=== PATIENT | male | born 1965 | race Caucasian/White ===

== ENCOUNTER 2020-12-17 11:02 | Inpatient (IN) | payer OTHER ==
[~2020-12-17] VITALS: Ht 172.7 cm; Wt 59.4 kg
--- NOTE | 2020-12-17 11:05 | NUR ---
The patient is [id number] for weakness and hypotension per report. The patient alert and oriented to his name. In room air. Respiration regular and unlabored. In no apparent distress at this time. Attached to the monitor. Warm blanket provided for comfort. Will continue to monitor the patient.
[2020-12-17] MEDS ORDERED: IV NS 0.9% 1,000 ML BAG IV ONE (11:30)
--- NOTE | 2020-12-17 11:46 | NUR ---
BLOOD SPECIMEN COLLECTED AND SENT TO THE LAB
[2020-12-17 11:50] LABS: BASOPHILS % (AUTO) 0.4 % (0.0-2.0); EOSINOPHILS % (AUTO) 0.9 % (0.0-6.0); HEMATOCRIT 43 % (39-51); HEMOGLOBIN 14.5 g/dL (13.5-17.5); LYMPHOCYTES # (AUTO) 1.3 /CMM (0.8-4.8); LYMPHOCYTES % (AUTO) 23.4 % (20.0-44.0); MEAN CORPUSCULAR HGB CONC 34 g/dl (31.0-36.0); MEAN CORPUSCULAR VOLUME 90 fL (80-96); MONOCYTES # (AUTO) 0.3 /CMM (0.1-1.30); MONOCYTES % (AUTO) 5.8 % (2.0-12.0); NEUTROPHILS # (AUTO) 3.9 /CMM (1.8-8.9); NEUTROPHILS % (AUTO) 69.5 % (43.0-81.0); PLATELET COUNT (AUTO) 207 /CMM (150-450); RED BLOOD CELL COUNT(AUTO) 4.73 MIL/uL (4.5-6.0); WHITE BLOOD COUNT (AUTO) 5.6 K/uL (4.3-11.0)
[2020-12-17 12:02] LABS: CALCIUM, SERUM 8.9 mg/dL (8.5-10.1); CARBON DIOXIDE 30 mmol/L (21-32); CHLORIDE 106 mmol/L (98-107); CREATININE 0.9 mg/dL (0.6-1.3); GLUCOSE 183 mg/dL (74-106); POTASSIUM 4.3 mmol/L (3.5-5.1); SODIUM SERUM 142 mmol/L (136-145); UREA NITROGEN, BLOOD 11 mg/dL (7-18)
[2020-12-17 12:16] LABS: ALANINE AMINOTRANSFERASE 18 U/L (12-78); ALBUMIN 3.9 g/dL (3.4-5.0); ALKALINE PHOSPHATASE 72 U/L (46-116); ASPARTATE AMINOTRANSFERASE 13 U/L (15-37); B-TYPE NATRIURETIC PEPTIDE 137 PG/ML (0-125); BILIRUBIN,DIRECT 0.2 mg/dL (0.0-0.2); BILIRUBIN,TOTAL 1.3 mg/dL (0.2-1.0)
[2020-12-17] MEDS ORDERED: CLON0.5T4 PO (12:17)
[2020-12-17] MEDS ORDERED: NA P133E RC (12:17)
[2020-12-17] MEDS ORDERED: CRAN425C6 PO (12:17)
[2020-12-17] MEDS ORDERED: LACT1CAP61 PO (12:17)
[2020-12-17] MEDS ORDERED: POLY17PO4 PO (12:17)
[2020-12-17] MEDS ORDERED: CITA20TA19 PO (12:17)
[2020-12-17] MEDS ORDERED: MELA3TAB41 PO (12:17)
[2020-12-17] MEDS ORDERED: DOCU-141 PO (12:17)
[2020-12-17] MEDS ORDERED: ASCO500C17 PO (12:17)
[2020-12-17] MEDS ORDERED: CARB1TAB21 PO (12:17)
[2020-12-17] MEDS ORDERED: MAGN400O6 PO (12:17)
[2020-12-17] MEDS ORDERED: DICL100G16 TP (12:17)
[2020-12-17] MEDS ORDERED: TAMS-12 PO (12:17)
[2020-12-17] MEDS ORDERED: PANT40TA2 PO (12:17)
[2020-12-17] MEDS ORDERED: BISA10SU11 RC (12:17)
[2020-12-17] MEDS ORDERED: LOSA50TA39 PO (12:17)
[2020-12-17] MEDS ORDERED: MULT-439 PO (12:17)
[2020-12-17] MEDS ORDERED: HYDR-4209 PO (12:17)
[2020-12-17] MEDS ORDERED: GABA-532 PO (12:17)
[2020-12-17] MEDS ORDERED: DONE10TA44 PO (12:17)
[2020-12-17] MEDS ORDERED: LIDOCAINE PATCH TD (12:17)
[2020-12-17] MEDS ORDERED: ACET325T53 PO (12:17)
[2020-12-17] MEDS ORDERED: ATOR10TA PO (12:17)
[2020-12-17] MEDS ORDERED: AMAN100T PO (12:17)
--- NOTE | 2020-12-17 12:33 | NUR ---
covid swab done and sent to the lab
--- NOTE | 2020-12-17 13:09 | NUR ---
urine collected and sent to the lab
[2020-12-17 13:59] LABS: BILIRUBIN,URINE SMALL (NEGATIVE); COLOR,URINE YELLOW (YELLOW); LEUKOCYTE ESTERASE ,URINE Negative (NEGATIVE); NITRITE, URINE Negative (NEGATIVE); PROTEIN,URINE 30 mg/dl (NEGATIVE); UGLUCOSE Negative (NEGATIVE)
[2020-12-17 14:00] LABS: BACTERIA,URINE Rare /HPF (None Seen); RBC,URINE 0-2 /HPF (0-2); SQUAMOUS EPITHELIAL CELL,UR Rare /HPF (None Seen); WBC,URINE 0-2 /HPF (0-3)
--- NOTE | 2020-12-17 15:09 | NUR ---
the patient watching tv while in bed. in no apparent distress.
--- NOTE | 2020-12-17 15:10 | NUR ---
waiting for slot floor supervisor to assign bed
--- NOTE | 2020-12-17 15:52 | NUR ---
DR. RAMACHANDRAN, FOR PEER TO PEER.
--- NOTE | 2020-12-17 20:00 | NUR ---
REC'D REPORT FROM AM SHIFT. PT PENDING TRANSFER TO [facility], PT ON MONITOR, NOT IN ACUTE DISTRESS, NO SOB, VSS
--- NOTE | 2020-12-17 22:44 | NUR ---
GAVE CLINICALS TO ADMITTING
--- NOTE | 2020-12-17 23:38 | NUR ---
CALL FROM LAB. RAPID COVID NEGATIVE.
--- NOTE | 2020-12-18 00:01 | NUR ---
TRANSFER INFO: [facility] ROOM 601, RN FOR REPORT [phone]
--- NOTE | 2020-12-18 00:05 | NUR ---
[facility] AUTH# [id number]
--- NOTE | 2020-12-18 00:09 | NUR ---
CALLED [facility] NO ALS AVAILABILITY TONIGHT
--- NOTE | 2020-12-18 00:10 | NUR ---
CALLED [facility] NO ALS AVAILABILITY TONIGHT
--- NOTE | 2020-12-18 00:10 | NUR ---
CALLED [facility] NO ALS AVAILABILITY TONIGHT
--- NOTE | 2020-12-18 00:15 | NUR ---
CALLED [facility], NO AVAILABILITY UNTIL 1300
--- NOTE | 2020-12-18 00:16 | NUR ---
CALLED [facility] NO ALS UNTIL 1300
--- NOTE | 2020-12-18 07:07 | NUR ---
PT NOT IN ANY DISTRESS, VSS, AWAITING ALS TRANSPORT AT THIS TIME. NO ETA
--- NOTE | 2020-12-18 07:18 | NUR ---
[facility] [phone].
--- NOTE | 2020-12-18 07:22 | NUR ---
CALLED [facility] FOR TRANSPORT TO [facility], ETA [phone]. TRIP NUMBER [phone].
--- NOTE | 2020-12-18 07:37 | NUR ---
REPORT GIVEN TO JEANE RN FOR JOSE
--- NOTE | 2020-12-18 07:54 | NUR ---
PAGED [facility].
--- NOTE | 2020-12-18 08:53 | NUR ---
THE PATIENT ALERT AND ORIENTED TO SELF. RESTING IN BED. IN NO APPARENT DISTRESS.
--- NOTE | 2020-12-18 08:54 | NUR ---
BED 118
--- NOTE | 2020-12-18 08:59 | NUR ---
REPORT GIVEN TO SHELDON ANDRADE
[2020-12-18] MEDS ORDERED: MAGNESIUM HYDROXIDE 30 ML UDC PO PRN ×2 (09:00)
[2020-12-18] MEDS ORDERED: HYDROCODONE/APAP 5/325MG TABLET PO PRN ×2 (09:00)
[2020-12-18] MEDS ORDERED: ZOLPIDEM TARTRATE 5 MG TABLET PO PRN (09:00)
[2020-12-18] MEDS ORDERED: LIDOCAINE TD SCH (09:00)
[2020-12-18] MEDS ORDERED: ONDANSETRON HCL/PF 4 MG/2 ML VIAL IVP PRN (09:00)
[2020-12-18] MEDS ORDERED: GABAPENTIN 100 MG CAPSULE PO SCH (09:00)
[2020-12-18] MEDS ORDERED: NA PHOS,M-B/NA PHOS,DI-BA 1 EA ENEMA RC PRN (09:00)
[2020-12-18] MEDS ORDERED: ACETAMINOPHEN 325 MG TABLET PO PRN ×2 (09:00)
[2020-12-18] MEDS ORDERED: BISACODYL SUPP (10 MG) 10 MG/SUPP.RECT SUPP.RECT RC PRN (09:00)
[2020-12-18] MEDS ORDERED: clonazePAM 0.5 MG TABLET PO SCH (09:00)
[2020-12-18] MEDS ORDERED: DICLOFENAC TOPICAL 100 GM GEL..GM. TP PRN (09:00)
[2020-12-18] MEDS ORDERED: Medication Not On Formulary EA (Cranberry Extract (Cranberry) 425 MG) PO SCH (09:00)
[2020-12-18] MEDS ORDERED: MAG HYDROX/AL HYDROX/SIMETH 30 ML UDC PO PRN (09:00)
[2020-12-18] MEDS ORDERED: Z GUARD REMEDY 2 OZ OINT TP PRN (09:00)
--- NOTE | 2020-12-18 09:29 | NUR ---
The patient is transfered to room 118-2 per acls protocol and in stable condition.
--- NOTE | 2020-12-18 09:30 | NUR ---
RN NOTE RECEIVED PATIENT FROM RN JEANE. PATIENT IS STABLE ON ROOM AIR. WILL CONTINUE TO MONITOR THROUGHOUT SHIFT.
[2020-12-18] MEDS ORDERED: PANTOPRAZOLE 40 MG TABLET.DR PO SCH (11:00)
[2020-12-18] MEDS ORDERED: CITALOPRAM HYDROBROMIDE 20 MG TABLET PO SCH (11:00)
[2020-12-18] MEDS ORDERED: DOCUSATE SODIUM 100 MG CAPSULE PO SCH (11:00)
[2020-12-18] MEDS ORDERED: LOSARTAN POTASSIUM 50 MG TABLET PO SCH (11:00)
[2020-12-18] MEDS ORDERED: AMLO-213 PO (11:08)
[2020-12-18] MEDS ORDERED: QUET25TA PO ×2 (11:08)
[2020-12-18] MEDS ORDERED: ESCI5TAB PO (11:08)
[2020-12-18] MEDS ORDERED: THIA100T88 PO (11:08)
[2020-12-18] MEDS ORDERED: CARV3.122 PO (11:08)
[2020-12-18] MEDS ORDERED: ASPI-1169 PO (11:08)
[2020-12-18] MEDS ORDERED: SENN-175 PO (11:08)
[2020-12-18] MEDS ORDERED: FOLI0.8C PO (11:08)
[2020-12-18 12:00] VITALS: BP_SYST 123; BP_SYST 165; BP_DIAS 105; BP_DIAS 72
--- NOTE | 2020-12-18 12:19 | NUR ---
WOUND CARE CONSULT: PT PRESENTS WITH SACRAL SCAR, PRESENT ON ADMISSION. RECOMMENDATIONS MADE FOR SKIN PROTECTION. DISCUSSED WITH NURSING STAFF. MD IN AGREEMENT WITH PLAN OF CARE. PT MOVES ABOUT IN BED.
[2020-12-18] MEDS ORDERED: POLYETHYLENE GLYCOL 3350 17 GM POWD.PACK PO PRN (12:30)
[2020-12-18] MEDS: MULTIVIT W/MINERALS 1 TAB TABLET PO SCH (12:47)
[2020-12-18] MEDS ORDERED: CARBIDOPA/LEVODOPA 25/100 MG 1 UDTAB PO SCH (13:00)
--- NOTE | 2020-12-18 15:30 | NUR ---
rn note patient removed rac#[id number] iv access.
--- NOTE | 2020-12-18 15:40 | NUR ---
RN NOTE DR. BAEZA NOTIFIED OF IV REMOVAL. SEES NO NEED FOR MIDLINE INSERTION OR ANY FURTHER IV ACCESS AT THIS TIME.
[2020-12-18 16:00] VITALS: BP 137/80
[2020-12-18] MEDS: DOCUSATE SODIUM 100 MG CAPSULE PO SCH (16:11)
[2020-12-18] MEDS ORDERED: QUETIAPINE FUMARATE 25 MG TABLET PO ONE (16:30)
--- NOTE | 2020-12-18 18:44 | NUR ---
RN CLOSING NOTE PATIENT IS IN BED WITH HOB AT SEMI FOWLERS POSITION. PATIENT IS ON ROOM AIR WITH NO SIGNS OF LABORED BREATHING. PATIENT AOX0 AND NONVERBAL. BED IS LOCKED IN THE LOWEST POSITION, 3 GUARD RAILS RAISED, CALL MILLS WITHIN REACH, AND ALL HOSPITAL SAFETY PRECAUTIONS ARE BEING FOLLOWED. ALL DUE MEDS GIVEN AND PATIENT REMAINED STABLE THROUGHOUT SHIFT. WILL ENDORSE TO FOREX TRADER RN FOR JOSE.
[2020-12-18] MEDS ORDERED: SENNOSIDES 8.6 MG TABLET PO PRN (19:30)
--- NOTE | 2020-12-18 19:30 | NUR ---
CLINICAL TRIALS DATA COORDINATOR OPENING NOTE RECEIVED PATIENT IN BED. PER REPORT PATIENT IS NONVERBAL, PATIENT UNDERSTANDS AND SPEAKS INDONESIAN. TOLERATING ROOM AIR. RESPIRATIONS ARE EVEN AND UNLABORED. NO S/S SOB NOTED. NO C/O PAIN AT THIS TIME. EXTERNAL TELE MONITOR READS SINUS RHYTHM HR 66. IN NO APPARENT DISTRESS. NO IV ACCESS NOTED, PER REPORT MD IS AWARE. BILATERAL SOFT WRIST RESTRAINTS PRESENT, GOOD CAP REFILL, PATIENT IS ANXIOUS/ AGITATED. BED IS LOW AND LOCKED, HOB ELEVATED IN SEMI FOWLERS, SIDE RIALS UPX3, CALL LIGHT WITHIN REACH. WILL CONTINUE TO MONITOR THROUGHOUT SHIFT.
[2020-12-18 20:00] VITALS: BP 153/77
[2020-12-18] MEDS ORDERED: AMANTADINE HCL 100 MG CAPSULE PO SCH (21:00)
[2020-12-18] MEDS: TAMSULOSIN 0.4 MG CAP.SR.24H PO SCH (21:42)
[2020-12-18] MEDS: ATORVASTATIN 10 MG TABLET PO SCH (21:42)
[2020-12-18] MEDS: QUETIAPINE FUMARATE 25 MG TABLET PO SCH (21:42)
[2020-12-18] MEDS ORDERED: Medication Not On Formulary EA (Donepezil Hcl 10 MG) PO SCH (22:00)
[2020-12-18] MEDS ORDERED: ATORVASTATIN 10 MG TABLET PO SCH (22:00)
[2020-12-18] MEDS ORDERED: Medication Not On Formulary EA (Melatonin 3 MG) PO SCH (22:00)
[2020-12-18] MEDS ORDERED: TAMSULOSIN 0.4 MG CAP.SR.24H PO SCH (22:00)
--- NOTE | 2020-12-18 22:30 | NUR ---
SAP BASIS ARCHITECT NOTE PATIENT REFUSED FLOMAX 0.4MG, LIPITOR 20MG, AND SEROQUEL 25MG. ATTEMPTED TO EDUCATE PATIENT, HE WAS JUST GETTING AGITATED, COMBATIVE, CURSING AT RN AND OYSTER PICKER. RETRIED MULTIPLE TIME EVERY FEW MINUTES, CONTINUES TO REFUSE. MEDICATION THROUGH IN MEDICATED WASTE BIN THEY WERE ALREADY OPENED OUT OF PACKAGE.
[2020-12-19] VITALS: BP 159/85
--- NOTE | 2020-12-19 04:00 | NUR ---
CALL CENTER PROFESSIONAL NOTE PATIENT REFUSED 0400 VITAL SIGNS. PATIENT IS VERY COMBATIVE, KICKING, CURSING WHENEVER TRYING TO PROVIDE CARE.
--- NOTE | 2020-12-19 05:30 | NUR ---
LOADING DOCK HAND NOTE SENIOR CONTRACT SPECIALIST INFORMED ME THAT PATIENT IS REFUSING AM LABS AND IS GETTING AGGRESSIVE.
--- NOTE | 2020-12-19 07:04 | NUR ---
DIRECTOR OF ROTC NOTE INFORMED SENIOR NET DEVELOPER NONI CANTRELL NP THAT PATIENT HAS BECOME EXTREMELY COMBATIVE, KICKING, BITING, REMOVING RESTRAINTS. REFUSED PM SERODINORAH LEWIS. TELEPHONE ORDER STAT PSYCH CONSULT. FAXED OVER FACE SHEET TO [employer], INFORMED [employer]. LITERACY COACH AWARE WILL ENDORSE.
--- NOTE | 2020-12-19 07:26 | NUR ---
WASH TUB MACHINE OPERATOR CLOSING NOTE PATIENT IN BED. VERY COMBATIVE, KICKING, BITING AND AGGRESSIVE. REMAINS TOLERATING ROOM AIR. NO RESP DISTRESS. NO PAIN. TELE MONITOR READS SINUS RHYTHM. NO DISTRESS. NO IV ACCESS. BILATERAL SOFT WRIST RESTRAINTS MAINTAINED. DID NOT TURN PATIENT, HE WS RESTLESS AND INDEPENDENTLY MOVING, KICKING. BED REMAINS LOW AND LOCKED, HOB ELEVATED IN SEMI FOWLERS, SIDE RIALS UPX3, CALL LIGHT WITHIN REACH. WILL ENDORSE TO ONCOMING SHIFT.
--- NOTE | 2020-12-19 07:30 | NUR ---
RN OPENING NOTE Received patient asleep in bed calm and relaxed. No signs of distress. on room air tolerating well. Patient mumbles in Malay. Tele reading SR. Patient has bilateral wrist soft wrist restraints. no signs of skin integrity issues. No IV access. Per technician anatomic pathology patient was fighting and refused all medications. on 1:1 sitter. No IV access. Safety measures reinforced. Call light within reach. Will cont to monitor.
[2020-12-19] MEDS ORDERED: ACIDOPHILUS/BULGARICUS 1 EACH TAB.CHEW PO SCH (09:00)
[2020-12-19] MEDS: QUETIAPINE FUMARATE 25 MG TABLET PO SCH ×3 (09:00→21:38)
[2020-12-19] MEDS ORDERED: MULTIVIT W/MINERALS 1 TAB TABLET PO SCH (09:00)
[2020-12-19] MEDS ORDERED: ASCORBIC ACID 500 MG TABLET PO SCH (09:00)
[2020-12-19] MEDS: FOLIC ACID 1 MG TABLET PO SCH (09:00)
[2020-12-19] MEDS ORDERED: POLYETHYLENE GLYCOL 3350 17 GM POWD.PACK PO SCH (09:00)
[2020-12-19] MEDS: DOCUSATE SODIUM 100 MG CAPSULE PO SCH ×2 (09:00→17:00)
[2020-12-19] MEDS: ESCITALOPRAM OXALATE (10 MG) 10 MG TABLET PO SCH ×2 (09:00→12:24)
[2020-12-19] MEDS: AMLODIPINE BESYLATE 10 MG TABLET PO SCH (09:00)
[2020-12-19] MEDS: MULTIVIT W/MINERALS 1 TAB TABLET PO SCH (09:00)
[2020-12-19] MEDS: THIAMINE HCL 100 MG TABLET PO SCH ×2 (09:00→12:24)
[2020-12-19] MEDS: ASPIRIN 81 MG TAB.CHEW PO SCH (09:00)
--- NOTE | 2020-12-19 10:00 | NUR ---
Patient refused to eat breakfast. Offered 3x. Verbally offensive.
[2020-12-19 12:04] LABS: BASOPHILS % (AUTO) 0.4 % (0.0-2.0); EOSINOPHILS % (AUTO) 0.7 % (0.0-6.0); HEMATOCRIT 43 % (39-51); HEMOGLOBIN 14.9 g/dL (13.5-17.5); LYMPHOCYTES # (AUTO) 1.5 /CMM (0.8-4.8); LYMPHOCYTES % (AUTO) 29.8 % (20.0-44.0); MEAN CORPUSCULAR HGB CONC 34 g/dl (31.0-36.0); MEAN CORPUSCULAR VOLUME 90 fL (80-96); MONOCYTES # (AUTO) 0.4 /CMM (0.1-1.30); MONOCYTES % (AUTO) 7.9 % (2.0-12.0); NEUTROPHILS # (AUTO) 3.2 /CMM (1.8-8.9); NEUTROPHILS % (AUTO) 61.2 % (43.0-81.0); PLATELET COUNT (AUTO) 210 /CMM (150-450); RED BLOOD CELL COUNT(AUTO) 4.84 MIL/uL (4.5-6.0); WHITE BLOOD COUNT (AUTO) 5.2 K/uL (4.3-11.0)
[2020-12-19 12:24] LABS: CALCIUM, SERUM 9.6 mg/dL (8.5-10.1); CREATININE 0.5 mg/dL (0.6-1.3); MAGNESIUM 1.9 mg/dL (1.8-2.4); POTASSIUM 3.9 mmol/L (3.5-5.1)
--- NOTE | 2020-12-19 16:36 | NUR ---
Refused Vital signs. Patient starts kicking and agitated.
--- NOTE | 2020-12-19 19:18 | NUR ---
RN CLOSING NOTE Patient in bed awake appears calm and relaxed. 1:1 sitter at bedside. Bilateral soft wrist restraints still intact. Safety measures reinforced. Endorsed to shift supervisor film processing nurse for bee.
--- NOTE | 2020-12-19 19:30 | NUR ---
MS RN OPENING NOTE RECEIVED PATIENT IN BED. PATIENT IS NONVERBAL AT THIS TIME. TOLERATING ROOM AIR. RESPIRATIONS ARE EVEN AND UNLABORED. NO S/S SOB NOTES. NO C/O NOR S/S PAIN AT THIS TIME. IN NO APPARENT DISTRESS. NO IV ACCESS. BILATERAL SOFT WRIST RESTRAINTS PRESENT, GOOD CAP REFILL, NO REDNESS AT THIS TIME. BED IS LOW AND LOCKED, HOB ELEVATED IN SEMI FOWLERS, SIDE RIALS UP X3, CALL LIGHT WITHIN REACH. WILL CONTINUE TO MONITOR THROUGHOUT SHIFT.
[2020-12-19 20:00] VITALS: BP 130/85
[2020-12-19] MEDS: TAMSULOSIN 0.4 MG CAP.SR.24H PO SCH (21:38)
[2020-12-19] MEDS: ATORVASTATIN 10 MG TABLET PO SCH (21:38)
[2020-12-20 04:00] VITALS: BP 141/92
--- NOTE | 2020-12-20 06:57 | NUR ---
MS RN CLOSING NOTE PATIENT RESTING IN BED. PATIENT REMAINS NONVERBAL THROUGHOUT SHIFT, DID NOT SPEAK ONCE. REMAINS TOLERATING ROOM AIR. NO RESP DISTRESS. NO S/S PAIN. NO DISTRESS. NO IV ACCESS. BILATERAL SOFT WRIST RESTRAINTS MAINTAINED, SLIGHT REDNESS PATIENT WAS AWAKE THROUGHOUT MOST OF NIGHT SLEPT APPROXIMATELY 2HOURS, WAS VERY QUIET, RESTLESS AND TRYING TO REMOVE RESTRAINTS EVERY FEW MINUTES. NO KICKING, BITING OR CURSING EXPERIENCED THIS SHIFT. PATIENT WAS ALSO COMPLIANT WITH MEDICATIONS AND VITAL SIGN CHECKS THIS SHIFT. BED REMAINS LOW AND LOCKED, HOB ELEVATED IN SEMI FOWLERS, SIDE RIALS UP X3, CALL LIGHT WITHIN REACH. WILL ENDORSE TO ONCOMING SHIFT.
[2020-12-20 08:00] VITALS: BP 147/92
[2020-12-20 08:23] LABS: CALCIUM, SERUM 9.4 mg/dL (8.5-10.1); CREATININE 0.7 mg/dL (0.6-1.3); POTASSIUM 3.6 mmol/L (3.5-5.1)
[2020-12-20 08:44] LABS: BASOPHILS % (AUTO) 0.4 % (0.0-2.0); EOSINOPHILS % (AUTO) 1.1 % (0.0-6.0); HEMATOCRIT 47 % (39-51); HEMOGLOBIN 15.9 g/dL (13.5-17.5); LYMPHOCYTES # (AUTO) 1.4 /CMM (0.8-4.8); LYMPHOCYTES % (AUTO) 21.7 % (20.0-44.0); MEAN CORPUSCULAR HGB CONC 34 g/dl (31.0-36.0); MEAN CORPUSCULAR VOLUME 89 fL (80-96); MONOCYTES # (AUTO) 0.5 /CMM (0.1-1.30); MONOCYTES % (AUTO) 8.4 % (2.0-12.0); NEUTROPHILS # (AUTO) 4.4 /CMM (1.8-8.9); NEUTROPHILS % (AUTO) 68.4 % (43.0-81.0); PLATELET COUNT (AUTO) 215 /CMM (150-450); RED BLOOD CELL COUNT(AUTO) 5.25 MIL/uL (4.5-6.0); WHITE BLOOD COUNT (AUTO) 6.4 K/uL (4.3-11.0)
[2020-12-20] MEDS: THIAMINE HCL 100 MG TABLET PO SCH (08:44)
[2020-12-20] MEDS: QUETIAPINE FUMARATE 25 MG TABLET PO SCH ×2 (08:44→16:34)
[2020-12-20] MEDS: FOLIC ACID 1 MG TABLET PO SCH (08:44)
[2020-12-20] MEDS: DOCUSATE SODIUM 100 MG CAPSULE PO SCH ×2 (08:44→16:34)
[2020-12-20] MEDS: ESCITALOPRAM OXALATE (10 MG) 10 MG TABLET PO SCH (08:44)
[2020-12-20] MEDS: MULTIVIT W/MINERALS 1 TAB TABLET PO SCH (08:44)
[2020-12-20] MEDS: ASPIRIN 81 MG TAB.CHEW PO SCH (08:44)
[2020-12-20] MEDS: AMLODIPINE BESYLATE 10 MG TABLET PO SCH (08:47)
[2020-12-20 16:00] VITALS: BP 129/84
--- NOTE | 2020-12-20 19:50 | NUR ---
MS/RN OPENING NOTE RECEIVED PATIENT RESTING IN BED. AWAKE, NON-VERBAL AT BASELINE. CONTINUES ON ROOM AIR WITH NO S/SX OF RESPIRATORY DISTRESS NOTED. CONTINUES WITH BILATERAL SOFT WRIST RESTRAINTS FOR SAFETY WITH POSITIVE CIRCULATION NOTED AND CAP REFILL < 3 SEC. CONTINUES WITH NO IV ACCESS. MD AWARE. CALL LIGHT WITHIN REACH. ASPIRATION, FALL AND SAFETY PRECAUTIONS MAINTAINED. WILL CONTINUE TO MONITOR.
[2020-12-20] MEDS: TAMSULOSIN 0.4 MG CAP.SR.24H PO SCH (21:44)
[2020-12-20] MEDS: ATORVASTATIN 10 MG TABLET PO SCH (21:44)
[2020-12-21] VITALS: BP 144/75
--- NOTE | 2020-12-21 06:30 | NUR ---
MS/RN CLOSING NOTE PATIENT CURRENTLY RESTING IN BED. NON-VERBAL AT BASELINE. CONTINUES ON ROOM AIR WITH NO S/SX OF RESPIRATORY DISTRESS NOTED. CONTINUES WITH BILATERAL SOFT WRIST RESTRAINTS FOR SAFETY WITH POSITIVE CIRCULATION NOTED AND CAP REFILL < 3 SEC. CONTINUES WITH NO IV ACCESS. MD AWARE. CALL LIGHT WITHIN REACH. ASPIRATION, FALL AND SAFETY PRECAUTIONS MAINTAINED. WILL ENDORSE PLAN OF CARE TO ONCOMING SHIFT.
[2020-12-21 06:58] LABS: CALCIUM, SERUM 8.5 mg/dL (8.5-10.1); CREATININE 0.7 mg/dL (0.6-1.3); POTASSIUM 3.4 mmol/L (3.5-5.1)
--- NOTE | 2020-12-21 07:50 | NUR ---
RN OPENING NOTE PATIENT IS CURRENTLY IN BED WITH HOB AT SEMI FOWLERS POSITION. PATIENT IS ON ROOM AIR WITH NO SIGNS OF LABORED BREATHING. PATIENT IS NONVERBAL. BILATERAL SOFT WRIST RESTRAINTS ARE APPLIED. PATIENT HAS NO IV ACCESS. BED IS LOCKED IN THE LOWEST POSITION, 3 GUARD RAILS RAISED, CALL MILLS WITHIN REACH AND ALL HOSPITAL SAFETY PRECAUTIONS ARE BEING FOLLOWED. WILL CONTINUE TO MONITOR THROUGHOUT SHIFT.
[2020-12-21 08:00] VITALS: BP 140/93
[2020-12-21] MEDS ORDERED: QUET25TA PO (08:24)
[2020-12-21] MEDS ORDERED: ESCI10TA PO (08:24)
[2020-12-21] MEDS ORDERED: ESCITALOPRAM OXALATE (10 MG) 10 MG TABLET PO SCH (09:00)
[2020-12-21] MEDS ORDERED: POTASSIUM CHLORIDE 20 MEQ TAB.PRT.SR PO SCH (09:00)
[2020-12-21] MEDS: DOCUSATE SODIUM 100 MG CAPSULE PO SCH (09:00)
[2020-12-21] MEDS: FOLIC ACID 1 MG TABLET PO SCH (09:25)
[2020-12-21] MEDS: AMLODIPINE BESYLATE 10 MG TABLET PO SCH (09:25)
[2020-12-21] MEDS: QUETIAPINE FUMARATE 25 MG TABLET PO SCH ×2 (09:25→12:31)
[2020-12-21] MEDS: ASPIRIN 81 MG TAB.CHEW PO SCH (09:25)
[2020-12-21] MEDS: THIAMINE HCL 100 MG TABLET PO SCH (09:25)
[2020-12-21] MEDS: MULTIVIT W/MINERALS 1 TAB TABLET PO SCH (09:28)
[2020-12-21 14:50] VITALS: BP 124/70
--- NOTE | 2020-12-21 14:51 | NUR ---
patient discharged to [facility] [phone] all reports given to ambulance staff vitals stable no acute disctrss noted at present time
== END 2020-12-21 15:01 | DRG 201 ==
LOC: ER 11:16 → TELE1 12-18 09:12 → MEDSG1 12-19 10:02
PROVIDERS: ADMIT Family Medicine; ATTEND Family Medicine
DX: R00.1 Bradycardia, unspecified (principal); G93.49 Other encephalopathy; F33.3 Major depressive disorder, recurrent, severe with psychotic symptoms; G20 Parkinson's disease; E78.5 Hyperlipidemia, unspecified; I10 Essential (primary) hypertension; D63.8 Anemia in other chronic diseases classified elsewhere; Z98.1 Arthrodesis status; N40.0 Benign prostatic hyperplasia without lower urinary tract symptoms; R53.1 Weakness; F10.20 Alcohol dependence, uncomplicated; R55 Syncope and collapse; Z20.822 Contact with and (suspected) exposure to COVID-19; Z99.3 Dependence on wheelchair
CPT/HCPCS: 36415; 70450-TC; 71045-TC; 80048-TC; 80061-TC; 80076-TC; 81001; 82962-TC; 83605-TC; 83735-TC; 83880; 84100-TC; 84484-TC; 85025-TC; 85730-TC; 87040-TC; 87081-TC; 87086-TC; 93307-TC; C9803; G0378; L0172; U0003